=== PATIENT | male | born 1995 | race Hispanic/Latino ===

== ENCOUNTER 2020-10-06 13:43 | Emergency (ER) | payer OTHER ==
[2020-10-06 14:25] VITALS: BP 133/82
--- NOTE | 2020-10-06 15:21 | Event Note ---
ED Screening Note Date of service: 10/06/20 Time: 15:20 ED Screening Note: Patient presents for syncopal episode after receiving Covid vaccine today States a history of syncopal episodes from needles Patient declining labs today due to fear of another syncopal episode Denies any dizziness, chest pain, shortness of breath, or headache He states he passed out while sitting in a chair and denies any head trauma This initial assessment/diagnostic orders/clinical plan/treatment(s) is/are subject to change based on patients health status, clinical progression and re- assessment by fellow clinical providers in the ED. Further treatment and workup at subsequent clinical providers discretion. Patient/guardian urged not to elope from the ED as their condition may be serious if not clinically assessed and managed. Initial orders include: POC glucose EKG Orthostatic vitals
--- NOTE | 2020-10-06 18:53 | Emergency Department Report ---
ED General Adult HPI - General Chief complaint: Anxiety Stated complaint: I had an anxiety attack PUI?: No Time Seen by Provider: 10/06/20 17:54 Source: patient, RN notes reviewed Mode of arrival: Ambulatory Limitations: No Limitations - History of Present Illness Initial comments: The patient was evaluated in the emergency department for symptoms described in the history of present illness. He/she was evaluated in the context of the global COVID-19 pandemic, which necessitated consideration that the patient might be at risk for infection with the virus that causes COVID-19. Institutional protocols and algorithms that pertain to the evaluation of patients at risk for COVID-19 are in a state of rapid change based on inf ormation released by regulatory bodies including the CDC and federal and state organizations. These policies and algorithms were followed during the patient's care in the emergency department. Please note that these policies, procedures and recommendations changed on a rapid basis. The patient is a 24-year-old gentleman. He is not known to myself previously. 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 He has no other chronic medical conditions and takes no chronic medications. 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 Patient today was in his usual state of health today, when he went for his first COVID-19 vaccination, at a local convention center. The patient specifically denies preceding headache, neck pain, chest pain, abdominal pain, shortness of breath, hematemesis, bright red blood per rectum. He also denies leg pain, leg swelling, travel, surgery, DVT and pulmonary embolism risk factors. The patient reports that he began to feel anxious while attending his vaccination at the outpatient vaccination center. He also reports that he told vaccination administrators that he typically loses consciousness after needlestick, and requested specific accommodations. Patient received his first Covid vaccination today, and almost immediately thereafter, had an episode of loss of consciousness which is painless. He was referred to the emergency room because of this. The patient states that he is back to his baseline. The patient states that he has no complaints, except for mild anxiety. The patient states that he would like to go home and be discharged. The patient is adamant that he is back at his baseline at this time. -: Sudden, This afternoon Severity scale (0 -10): 0 Improves with: rest Worsens with: other (Anxiety associated with needle) Associated Symptoms: denies other symptoms - Related Data Allergies Allergy/AdvReac Type Severity Reaction Status Date / Time No Known Allergies Allergy Unverified 10/06/20 14:24 ED Review of Systems ROS: Stated complaint: SYNCOPE Other details as noted in HPI Comment: All other systems reviewed and negative Cardiovascular: syncope Psychiatric: anxiety ED Past Medical Hx - Past Medical History Previous Medical History?: No - Surgical History Past Surgical History?: No ED Physical Exam - General Limitations: No Limitations General appearance: alert, in no apparent distress - Head Head exam: Present: atraumatic, normocephalic - Eye Eye exam: Present: normal appearance, PERRL, EOMI, other (Visual acuity intact to finger counting, color perception, reading at a close distance). Absent: nystagmus - ENT ENT exam: Present: normal exam, normal orophraynx, mucous membranes moist, normal external ear exam - Neck Neck exam: Present: normal inspection, full ROM. Absent: tenderness, meningismus - Respiratory Respiratory exam: Present: normal lung sounds bilaterally. Absent: respiratory distress, wheezes, rales, rhonchi, stridor, decreased breath sounds - Cardiovascular Cardiovascular Exam: Present: regular rate, normal rhythm, normal heart sounds. Absent: bradycardia, tachycardia, irregular rhythm, systolic murmur, diastolic murmur, rubs, gallop - GI/Abdominal GI/Abdominal exam: Present: soft, normal bowel sounds. Absent: distended, t enderness, guarding, rebound, rigid, pulsatile mass - Rectal Rectal exam: Present: deferred - Extremities Exam Extremities exam: Present: normal inspection, full ROM, other (2+ pulses noted in the bilateral upper and lower extremities. There is no palpable cord. negative Homans sign. Muscular compartments are soft. The pelvis is stable.). Absent: pedal edema, calf tenderness - Back Exam Back exam: Present: normal inspection, full ROM. Absent: tenderness, CVA tenderness (R), CVA tenderness (L), paraspinal tenderness, vertebral tenderness - Neurological Exam Neurological exam: Present: alert, oriented X3, normal gait, other (There is no facial droop. The tongue is midline. Extraocular movements are intact bilaterally. There is 5 out of 5 strength in bilateral upper and lower extremities. Sensation is intact to light touch bilateral upper and lower extremities. There is no past-pointing. There is no pronator drift.). Absent: motor sensory deficit - Psychiatric Psychiatric exam: Present: normal affect, normal mood - Skin Skin exam: Present: warm, dry, intact, normal color. Absent: rash ED Course Vital Signs 10/06/20 14:24 Temperature 983 F H Pulse Rate 82 Respiratory 16 Rate Blood Pressure 133/82 [Right] O2 Sat by Pulse 100 Oximetry ED Medical Decision Making - Lab Data Vital Signs 10/06/20 10/06/20 14:24 18:49 Temperature 983 F H 98.5 F Pulse Rate 82 Respiratory 16 Rate Blood Pressure 133/82 [Right] O2 Sat by Pulse 100 Oximetry - EKG Data -: EKG Interpreted by Me EKG shows normal: sinus rhythm Rate: normal - EKG Data When compared to previous EKG there are: previous EKG unavailable 10/06/20 18:50 EKG interpreted at 16: 30 10/06/20 18:51 Sinus rhythm, 78 bpm, left axis deviation, left anterior fascicular block, poor R wave progression, QTC within normal limits. This is an abnormal EKG. This is not a STEMI. - Medical Decision Making Differential diagnosis, including but not limited to: Anxiety attack, panic attack, orthostasis, vagal event Assessment and plan: 24-year-old gentleman, who is afebrile, with reassuring vital signs, who is clinically sober, with a GCS of 15, not currently tachycardic, tachypneic or hypoxic, who denies DVT and pulmonary embolism risk factors, who is PERC negative, low risk by Wells criteria for pulmonary embolism, who is a conditioned athlete, who has a known history of anxiety and fainting when exposed to needlesticks, who presents with an episode of fainting after receiving first COVID-19 vaccination. When I assess and evaluate the patient, his examination is benign unremarkable, within normal limits, he has a GCS of 15, with an NIH score of 0, and thoroughly unremarkable and normal physical examination. Counseled the patient on signs and symptoms of panic attack and anxiety. I did offer patient laboratory studies, including CBC, metabolic panel, but based off of the history and physical, I do not think that these tests are likely to add additional diagnostic value, and the patient is in agreement. Therefore, through shared decision-making, we agreed to forego laboratory studies. Patient counseled of risks and benefits of this. This is very unlikely to be anemia or electrolyte derangement. Patient does have an abnormal EKG without prior for comparison. The patient took a picture of the EKG. He is going to keep it for his own records. I have counseled the patient to not drive or operate motor vehicles as per current [facility] law. Patient is going to follow-up with an outpatient primary care doctor or pourer. Patient has been observed in this ER for hours, without clinical decompensation, sober, exhibits decision-making capacity and he is of sound mind, and we have reached our disposition together through shared decision making. He has his significant other present who will drive him home. Return precautions are reviewed. Critical care attestation.: If time is entered above; I have spent that time in minutes in the direct care of this critically ill patient, excluding procedure time. ED Disposition Clinical Impression: General medical exam, History of syncope Disposition: TO HOME OR SELFCARE Is pt being admited?: No Does the pt Need Aspirin: No Condition: Stable Instructions: Managing Anxiety, Adult, Syncope Additional Instructions: Do not drive or operate motor vehicles for the next 6 months, or until cleared to do so by a primary care doctor or pourer. We recommend follow-up with a pourer or primary care doctor within the next 2 to 3 days. For the patient's convenience, numerous local cardiology practices have been listed that he may follow-up with. In the future, when receiving needlesticks injections, or blood draws, please make certain to be laying flat, or down, and inform attending team that patient may have episodes of syncope/anxiety and loss of consciousness associated with needle sticks. Participate in physical activities as tolerated, please return to the emergency room right away with new pain, worsened pain, migration of pain, projectile vomiting, change in mental status, confusion, inability to tolerate liquid feeds, new, worsened or different symptoms not present on the initial emergency room evaluation Referrals: IGNACIO JO MD [Staff Physician] - 3-5 Days LESLIE UMANZOR MD [Staff Physician] - 3-5 Days [facility] [Provider Group] - 3-5 Days [facility] [Provider Group] - 3-5 Days
--- NOTE | 2020-10-08 10:42 | Electrocardiograph Report ---
[facility] Test Date: 2020-10-06 Test Time: 15:28:26 Pat Name: MARY YOU Department: Room: Gender: M Lock Expert: : 1995 Requested By: TSERING REYES Order Number: [id number] Reading MD: Elie Encinas Measurements Intervals [place] Rate: 78 P: -49 DC: 156 QRS: -57 QRSD: 88 T: -87 QT: 376 QTc: 429 Interpretive Statements Consider lead malplacement SINUS OR ECTOPIC ATRIAL RHYTHM Inferior infarct, age indeterminate No previous ECG available for comparison Electronically Signed On 10-08-2020 10:41:44 EDT by Elie Encinas
== END 2020-10-06 19:00 | disposition home or self-care (01) ==
LOC: ED 13:43
DX: R55 Syncope and collapse (principal); Z00.01 Encounter for general adult medical examination with abnormal findings
CPT/HCPCS: 93005; 99282